=== PATIENT | female | born 1960 | race Caucasian/White ===

== ENCOUNTER 2018-01-01 10:33 | Outpatient (CLI) | payer BC | END 2018-01-01 10:34 | disposition home or self-care (01) | LOC: BICMAMMO 10:33 | PROVIDERS: ATTEND Family Medicine | DX: Z12.31 Encounter for screening mammogram for malignant neoplasm of breast (principal); Z80.3 Family history of malignant neoplasm of breast | CPT/HCPCS: 77063; 77067 ==

== ENCOUNTER 2019-01-29 02:08 | Inpatient (IN) | payer BC ==
[2019-01-29 03:00] LABS: Bilirubin Negative (Negative); Blood, Urine Moderate (Negative); Clarity CLOUDY (Clear); Glucose, Urine (Dipstick) Negative (Negative); Leukocyte Large (Negative); Nitrite Negative (Negative); Protein, Urine (Dipstick) 30 mg/dL (Neg-Trace); Specific Gravity, Urine 1.016 (1.002-1.036); Urobilinogen 0.2 mg/dL (0.2-1.0); pH, Urine 5.5 (5.0-9.0)
[2019-01-29 03:01] LABS: Bacteria/HPF 2+ HPF (None Seen); Hyaline Casts/LPF 4-6 HYALINE CAST LPF (0-3 Hyaline); Pathc Cast-AUWi Flag 1.08 (0-2.49); Squamous Epithelial 0-3 HPF (0-3)
[2019-01-29 03:14] LABS: Crystals/HPF None Seen HPF (Negative)
[2019-01-29 03:39] LABS: ALT (SGPT) 40 U/L (8-55); AST (SGOT) 51 U/L (5-34); Albumin 3.9 g/dL (3.4-4.8); Alkaline Phosphatase 79 U/L (40-150); Anion Gap 16 mmol/L (10-20); BUN (Urea Nitrogen) 12 mg/dL (9.8-20.1); Bilirubin, Total 0.6 mg/dL (0.2-1.2); Calc. Creatinine Clearance 0 mL/min (70-130); Calcium 9.7 mg/dL (7.8-10.44); Carbon Dioxide 23 mmol/L (23-31); Chloride 107 mmol/L (98-107); Estimated GFR-MDRD 72; Glucose 186 mg/dL (80-115); Protein, Total 6.9 g/dL (6.0-8.3); Sodium 142 mmol/L (136-145)
[2019-01-29] MEDS ORDERED: Ondansetron PF 4 MG/2 ML Vial ONE ×2 (03:41→04:31)
[2019-01-29 03:44] LABS: #Monocytes 0.8 thou/uL (0.11-0.59); %Basophils 0.1 % (0.0-1.0); %Eosinophils 0.2 % (0.0-10.0); %Lymphocytes 5.8 % (21.0-51.0); %Monocytes 4.6 % (0.0-10.0); %Neutrophils 89.3 % (42.0-75.0); Hemoglobin 15.2 g/dL (12.0-16.0); Mean Corpuscular HGB CONC 32.6 g/dL (32.0-36.0); Mean Corpuscular Hemoglobin 27.2 pg (27.0-31.0); Mean Corpuscular Volume 83.3 fL (78.0-98.0); Mean Platelet Volume 8.7 fL (7.4-10.4); Platelet Count 193 thou/uL (130-400); Red Blood Cell (RBC) Count 5.58 mill/uL (4.20-5.40); White Blood Cell (WBC) Count 16.8 thou/uL (4.8-10.8)
[2019-01-29 03:52] LABS: Lipase 5946 U/L (8-78)
[2019-01-29] MEDS ORDERED: cefTRIAXone\\ROCEPHIN 2 GM VIAL ONE (04:06)
[2019-01-29] MEDS ORDERED: Morphine 4 MG/ML VIAL ONE (04:31)
[2019-01-29] MEDS ORDERED: Sodium Chloride 0.9% 1,000 ML IV SCH (06:42)
[2019-01-29] MEDS ORDERED: Acetaminophen 325 MG TAB PO PRN ×2 (06:42→07:35)
[2019-01-29] MEDS ORDERED: Bisacodyl 10 MG SUPP PR PRN (07:35)
[2019-01-29] MEDS ORDERED: Calcium Carbonate 500 MG ChewTAB PO PRN (07:35)
[2019-01-29] MEDS ORDERED: Artificial Tears 18 DROP/0.9 ML EA EYE PRN (07:35)
[2019-01-29] MEDS ORDERED: Diabetic Tussin 200 MG/10 ML UDCUP PO PRN (07:35)
[2019-01-29] MEDS ORDERED: Sodium Chloride 0.65% Nasal 44 ML BOT EA NARE PRN (07:35)
[2019-01-29] MEDS ORDERED: Zolpidem Tartrate 5 MG TAB PO PRN (07:35)
[2019-01-29] MEDS ORDERED: Eucerin (Mineral Oil/Petrolatum,White) 30 gm Jar TOP PRN (07:35)
[2019-01-29] MEDS ORDERED: Bisacodyl 5 MG TAB PO PRN (07:35)
[2019-01-29] MEDS ORDERED: Ondansetron PF 4 MG/2 ML Vial IVP PRN ×2 (07:35→10:35)
[2019-01-29] MEDS ORDERED: Loratadine 10 MG TAB PO PRN (07:35)
[2019-01-29] MEDS ORDERED: Loperamide HCl 2 MG CAP PO PRN (07:35)
[2019-01-29] MEDS ORDERED: Cepastat Lozenges 1 LOZ PO PRN (07:35)
[2019-01-29] MEDS ORDERED: Dextrose 50% Abboject 50 ML SYRINGE SLOW IVP PRN (07:35)
[2019-01-29] MEDS ORDERED: Senokot S 8.6-50 MG TAB PO PRN (07:35)
[2019-01-29] MEDS ORDERED: Dextrose 5% in Water 1,000 ML IV PRN (07:35)
[2019-01-29] MEDS ORDERED: HumaLOG 300 UNITS/3 ML VIAL SC PRN ×2 (07:35)
--- NOTE | 2019-01-29 08:04 | ULT ---
RIGHT UPPER QUADRANT ULTRASOUND: Date: 01/29/19 INDICATION: History of pancreatitis and morbid obesity. COMPARISON: CT abdomen and pelvis dated 04/02/14. FINDINGS: There are small, layered stones seen within the gallbladder fundus. The gallbladder wall is mildly th ickened, measuring 3 mm. No pericholecystic fluid is evident. No sonographic Jarquin's sign is reporte d. There is diffuse fatty infiltration of the liver. The main pancreatic duct is slightly dilated, me asuring over 3 mm. The common bile duct is dilated, measuring 8 mm. The visualized right kidney measu res 10.8 cm in length without evidence of hydronephrosis. No definite free fluid is evident. IMPRESSION: 1. Fatty liver. 2. Cholelithiasis without sonographic evidence of acute cholecystitis. 3. Dilatation of the common bile duct measuring 8 mm. There is also dilatation of the main pancreati c duct. Distal obstructing stone or mild obstruction from the patient's reported pancreatitis cannot be entirely excluded. MRCP examination may be helpful for further characterization. POS: VICKY
[2019-01-29] MEDS: Enoxaparin Sodium 40 MG/0.4 ML SYRINGE SC SCH (08:14)
[2019-01-29] MEDS: Famotidine/PF 20 mg/2ml Vial SLOW IVP SCH ×2 (08:14→20:56)
[2019-01-29] MEDS: HYDROcodone/Acetaminophen 5/325 mg Tablet PO PRN ×2 (08:15→19:18)
[2019-01-29] MEDS: Famotidine 20 MG TAB PO SCH ×2 (08:22→20:57)
[2019-01-29 08:33] LABS: Lactic Acid 2.5 mmol/L (0.5-2.2)
[2019-01-29] MEDS ORDERED: Morphine 4 MG/ML VIAL SLOW IVP PRN (08:40)
[2019-01-29] MEDS ORDERED: Ondansetron ODT 4 MG TAB SL PRN (10:35)
[2019-01-29] MEDS: Sodium Chloride 0.9% 1,000 ML IV SCH ×3 (10:58→20:58)
[2019-01-29] MEDS: hydrALAZINE 20 MG/ML VIAL SLOW IVP PRN ×2 (10:59→17:24)
[2019-01-29] MEDS ORDERED: Nystatin Powder 15 GM BOT TOP PRN (12:04)
--- NOTE | 2019-01-29 12:49 | HP ---
PRIMARY CARE PHYSICIAN: Dayne Pederson MD REASON FOR ADMISSION: Acute pancreatitis. HISTORY OF PRESENT ILLNESS: A 59-year-old female who has morbid obesity, who presented to emergency room with complaint of acute onset of nausea and vomiting which started yesterday. She was also having epigastric abdominal pain. She denies any diarrhea, melena, or hematochezia. She denies any hematemesis. She denies any recent antibiotic exposure. She denies any fever or chills. She denies any UTI symptoms. The patient was not able to keep anything down and that is why she was brought to emergency room for evaluation. In the emergency room, the patient was evaluated and routine blood test showed lactic acidosis, leukocytosis, and elevated lipase. The patient also has urinalysis suggestive of UTI. The patient received in the emergency room Rocephin, IV fluid, and subsequently she is admitted to surgical floor. REVIEW OF SYSTEMS: CONSTITUTIONAL: Negative for weight loss or gain, ability to conduct usual activities. SKIN: Negative for rash, itching. EYES: Negative for double vision, pain. ENT/MOUTH: Negative for nose bleeding, neck stiffness, pain, tenderness. CARDIOVASCULAR: Negative for palpitations, dyspnea on exertion, orthopnea. RESPIRATORY: Negative for shortness of breath, wheezing, cough, hemoptysis, fever or night sweats. GASTROINTESTINAL: Negative for poor appetite, abdominal pain, heartburn, nausea, vomiting, constipation, or diarrhea. GENITOURINARY: Negative for urgency, frequency, dysuria, nocturia. MUSCULOSKELETAL: Negative for pain, swelling. NEUROLOGIC/PSYCHIATRIC: Negative for anxiety, depression. ALLERGY/IMMUNOLOGIC: Negative for skin rash, bleeding tendency. Please see my HPI for pertinent positives and negatives. All other review of systems reviewed and negative except as mentioned in HPI. PAST MEDICAL HISTORY: Morbid obesity, degenerative spine disease, osteoarthritis, and asthma, prediabetes. PAST SURGICAL HISTORY: Hemorrhoid surgery, sinus surgery, and . PAST PSYCHIATRIC HISTORY: Anxiety and depression. SOCIAL HISTORY: The patient denies any alcohol abuse. She denies any smoking. She denies any other illicit drug abuse. She lives at home with family. FAMILY HISTORY: No strong family history of premature coronary artery disease, stroke, or cancer. ALLERGIES: PAPER TAPE, BUT NO KNOWN DRUG ALLERGY. CURRENT HOME MEDICATIONS: The patient is taking metformin 1000 mg p.o. twice daily. EMERGENCY ROOM COURSE: The patient has received Rocephin 2 g, morphine 4 mg, Zofran 4 mg x2, IV fluid 2 L, Bentyl 20 mg IM. PHYSICAL EXAMINATION: VITAL SIGNS: On arrival, blood pressure 180/77, pulse 61, respiratory rate 20, temperature 98.3, saturation 97% on room air. Weight 163 kg. GENERAL: The patient is currently alert, awake, no obvious acute distress. HEENT: Head; normocephalic, atraumatic. Eyes; pupils round, reactive to light. Extraocular muscle intact. ENT, oropharynx within normal limits. Moist mucous membranes. No oral lesion. No pharyngeal erythema. No exudate. NECK: Supple. No JVD. No thyromegaly. No carotid bruit. No jugular venous distention. LUNGS: Clear to auscultation without any rhonchi or rales. CARDIAC: S1, S2 regular. No murmur. No gallop. No rub. ABDOMEN: The patient does have epigastric discomfort. No peritoneal sign. No guarding. No rigidity. No rebound. Morbid obesity limiting examination. BACK: Unremarkable. No CVA tenderness. EXTREMITIES: Upper extremity, passive movement of all joints are normal. Lower extremity, no edema. Good distal pulsation. SKIN: The patient does have intertriginous area erythematous. As per emergency room note, the patient was found with bedbugs as well and the patient is also dealing with bedbugs at home. NEUROLOGIC: Unremarkable. She moves all 4 limbs. SIGNIFICANT LABS: Ultrasound showing fatty liver, cholelithiasis, dilatation of common bile duct 8 mm, dilatation of main pancreatic duct. CBC; WBC 16.8, hemoglobin 15.2, platelet 193. BMP; sodium 142, potassium 4.0, chloride 97, carbon dioxide 23, anion gap 16, BUN 12, creatinine 0.81, glucose 186, calcium 9.7. LFTs; AST 51, ALT 40, alkaline phosphatase 79, albumin 3.9, lipase 5946. Lactic acid 3.2. Urinalysis suggestive of UTI. ASSESSMENT AND PLAN: Impression: 1. Acute pancreatitis. This patient has cholelithiasis and she has slightly dilated common bile duct and prominent pancreatic duct. We will consult development coordinator for their evaluation. The patient is too big to have magnetic resonance cholangiopancreatography. We will ask development coordinator if any need of endoscopic retrograde cholangiopancreatography. At this point, we will treat conservatively. We will keep her n.p.o. Continue with IV fluid NS at 125 mL/h, control her pain with morphine p.r.n. basis. Continue Pepcid 20 mg IV b.i.d. We will repeat labs including CBC, CMP, CRP, lipase, magnesium, phosphorus, and lipid profile tomorrow. The patient is also kept on antibiotic therapy for urinary tract infection, which will also help to prevent infection in biliary area. 2. Lactic acidosis, likely due to sepsis secondary to urinary tract infection versus choledocholithiasis. At this point, the patient will be given IV fluid. The patient is already on broad spectrum antibiotic therapy. We will repeat lactic acid level tomorrow. 3. Urinary tract infection with sepsis. The patient's urinalysis was consistent with urinary tract infection. We will follow up on culture result. The patient will be kept on Rocephin and levofloxacin. 4. Morbid obesity with BMI 43. Dietary education given. Weight loss education given. 5. Tinea infection in the skin. The patient will need nystatin topical application as needed. 6. Diabetes type 2. We will check hemoglobin A1c tomorrow and continue with insulin as per sliding scale protocol. 7. Deep venous thrombosis prophylaxis. Lovenox 40 mg subcu daily. Gastrointestinal prophylaxis, Pepcid 20 mg IV b.i.d. CODE STATUS: The patient is full code. The patient's is surrogate decision maker. DISPOSITION PLAN: 1. Based on clinical course. 2. Anxiety and depression. We will continue Zoloft 25 mg p.o. daily. Job ID: [id number]
[2019-01-29 21:11] VITALS: BMI 56.8
--- NOTE | 2019-01-29 22:25 | PRG ---
DATE OF SERVICE: 01/29/2019 I have seen Ms. Mtz, is a 59-year-old morbidly obese woman with acute gallstone pancreatitis. I was asked to evaluate the patient for possible laparoscopic cholecystectomy. At the time of my evaluation, the patient reports the pain is better controlled now. PHYSICAL EXAMINATION: VITAL SIGNS: Includes blood pressure 174/82, pulse is 72, respiratory rate is 18, temperature is 97.9 degrees Fahrenheit, oxygen saturation 93% on room air. HEART: Reveals regular rate and rhythm. LUNGS: Clear to auscultation bilaterally. HEENT: Pupils are equal, round, reactive to light and accommodation. She has no scleral icterus present. NEUROLOGIC EXAMINATION: No focal deficits present. ABDOMEN: Soft, morbidly obese with large panniculus which hangs down to almost her knees. LABORATORY FINDINGS: Significant for CBC with 16,800 white blood cells, hemoglobin and hematocrit 15.2 and 46.5 respectively, platelet count 193,000. Metabolic profile is significant for lipase markedly elevated at 5946. AST and ALT are normal at 51 and 40 respectively. Total bilirubin is also normal at 0.6. Alkaline phosphatase is normal at 79. I have evaluated the abdominal ultrasound, which was obtained this morning, remarkable for intraluminal small gallstones. Common bile duct is slightly dilated for this patient's age at 8 mm in diameter. The patient was unable to undergo MRCP today due to weight limitation. I have reviewed the consultation as dictated by Zonia Nevarez, trauma nurse practitioner, and I agree with her stated plan. There is no indication for laparoscopic cholecystectomy for this patient at this time with active pancreatitis, especially since there is no radiographic evidence of acute cholecystitis. Recommend conservative management including bowel rest, IV hydration, and serial laboratory studies. Above findings and plan discussed with the patient who indicates understanding information given. I have answered her questions. Job ID: [id number]
--- NOTE | 2019-01-29 22:45 | CON ---
DATE OF CONSULTATION: 01/29/2019 REASON FOR CONSULTATION: Pancreatitis. HISTORY OF PRESENT ILLNESS: Maria Del Rosario Mtz is a very pleasant 59-year-old woman with a history of morbid obesity, prediabetes, arthritis, and asthma. She has also been dealing with bedbugs recently. 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 I do not have any further details on this and she really cannot provide me any. She denies any prior history of gallbladder issues for pancreatitis or any family history of pancreatitis. Yesterday out of the blue, she had a sudden onset of acute epigastric pain, nausea and repeated vomiting. There was no associated diarrhea, melena, or hematochezia or fever with this. Upon presentation to the emergency department early this morning, laboratory studies demonstrated leukocytosis, elevated lactic acid and elevated lipase over 5000. LFTs were essentially normal. She had an abdominal ultrasound, which showed cholelithiasis and some mild dilation of the common bile duct to 8 mm and suggestion of dilation of the pancreatic duct as well. Urinalysis suggested UTI. She has been admitted to the hospital, started on Rocephin, IV fluids, analgesics and antiemetics. Currently, she says she is feeling better. She is feeling thirsty, but not really hungry. Abdominal pain is improved, but still persists. She is hemodynamically stable and afebrile. She reports that she does not drink any alcohol. She has had no prior episodes of pancreatitis. REVIEW OF SYSTEMS: Full review of systems including constitutional, head, eyes, ears, nose, throat, GI, , cardiovascular, respiratory, musculoskeletal, and neurologic systems is negative except as noted in the HPI. PAST MEDICAL HISTORY: Obesity, degenerative joint disease, asthma, prediabetes, depression/anxiety, bedbugs infestation, diverticulitis 2014. ALLERGIES: PAPER TAPE. OUTPATIENT MEDICATIONS: 1. Metformin. 2. Zoloft. 3. Aspirin 81 mg daily. 4. Tramadol p.r.n. SOCIAL HISTORY: She denies any smoking, alcohol, or drug use. FAMILY HISTORY: Negative for pancreatic disease. PHYSICAL EXAMINATION: VITAL SIGNS: Temperature 98.6, pulse 80, blood pressure 188/96, 95% oxygen saturation on room air. GENERAL: Morbidly obese 59-year-old woman, sitting up on the side of the bed comfortably, in no distress. SKIN: No jaundice, no rashes were palpable. EYES: No scleral icterus. Extraocular movements intact. ENT: Mucous membranes moist. No oral lesions. LYMPH: No submandibular, supraclavicular lymphadenopathy. Thyroid nontender to palpation. HEART: Regular rate and rhythm. LUNGS: Distant breath sounds. Clear to auscultation. ABDOMEN : The abdomen is morbidly obese. Bowel sounds are hypoactive, but present. The abdomen is soft, really nontender to palpation throughout at this time. No guarding, rebound tenderness. EXTREMITIES: No peripheral edema. VESSELS: Radial pulses 2+ bilaterally. NEUROLOGIC: Cranial nerves 2 through 12 intact bilaterally. No focal deficits. LABORATORY STUDIES: WBC 16.8, hemoglobin 15.2, platelets 193. Sodium 142, potassium 4.0, BUN 12, creatinine 0.81, glucose 171. Lactic acid was initially 3.2, came down to 2.5. AST is mildly elevated to 51. LFTs are otherwise completely normal with total bilirubin of 0.6, alkaline phosphatase 79, ALT 40, albumin is 3.9. Lipase is elevated to 5946. IMAGING STUDIES: Abdominal ultrasound from earlier today demonstrates cholelithiasis with only mild gallbladder wall thickening to 3 mm, but no pericholecystic fluid. There is fatty infiltration of the liver. The main pancreatic duct was read as slightly dilated measuring over 3 mm. The common bile duct measured 8 mm. ASSESSMENT/PLAN: 1. Acute pancreatitis, initial episode, likely biliary etiology. 2. Mild biliary dilation on abdominal ultrasound, with essentially normal liver function tests. 3. Cholelithiasis. The patient's presentation is all consistent with first episode of uncomplicated pancreatitis. Laboratory parameters are all favorable. I anticipate she will do well with aggressive supportive care. She is already getting with IV fluids, n.p.o. status, antiemetics and analgesics. Regarding the etiology of her pancreatitis, I would favor biliary etiology. She has cholelithiasis evident on the ultrasound, and she does not drink alcohol. I do note the common bile duct dilation to 8 mm on the ultrasound, but on the other hand, liver function tests are essentially normal, and I have a low suspicion for choledocholithiasis at this time. Normally, I would recommend magnetic resonance cholangiopancreatography to better evaluate for choledocholithiasis, but she cannot have magnetic resonance cholangiopancreatography due to her body habitus. Accordingly, I would recommend continuing supportive care for pancreatitis, and also recommend getting surgical consultation for consideration of cholecystectomy at some point. During cholecystectomy, intraoperative cholangiogram could be performed to better evaluate the bile duct, and if there is evidence of choledocholithiasis on this, then endoscopic retrograde cholangiopancreatography would be indicated. I would not plan for any endoscopic retrograde cholangiopancreatography diagnostically. I would recommend trending the liver function tests, and if they were to rapidly increase over the course of this hospitalization then I would certainly consider a preoperative endoscopic retrograde cholangiopancreatography. Thank you for the consultation. Please call anytime with questions or concerns. Job ID: [id number]
--- NOTE | 2019-01-30 01:40 | CON ---
DATE OF CONSULTATION: 01/29/2019 HISTORY OF PRESENT ILLNESS: This is a 59-year-old female, who presented to the emergency room with complaints of nausea and vomiting that started Venkat night. The patient also reported epigastric abdominal pain. The patient denied any diarrhea or constipation. The patient's last normal bowel movement was Thursday evening. The patient denies any recent fever or chills and denies any antibiotic exposure. The patient also denies any urinary symptoms. The patient reports several episodes of vomiting and not able to keep anything down. REVIEW OF SYSTEMS: A 10-point review of systems is negative unless otherwise stated in the above HPI. PAST MEDICAL HISTORY: Morbid obesity, degenerative spine disease, osteoarthritis, asthma controlled, prediabetes, diverticulitis. PAST SURGICAL HISTORY: In 2013, the patient had large bowel resection due to diverticulitis, , hemorrhoid surgery, sinus surgery. PAST PSYCHIATRIC HISTORY: Anxiety and depression. SOCIAL HISTORY: The patient denies any alcohol abuse. The patient states she drank in her 20s, but has not drank any alcohol in the last 30 years. The patient denies any smoking history, and denies any illicit drug use. The patient lives at home with family. ALLERGIES: NO KNOWN DRUG ALLERGIES. CURRENT HOME MEDICATIONS: Metformin, Zoloft. PHYSICAL EXAMINATION: VITAL SIGNS: Temp 98.4, pulse 69, respirations 18, SpO2 of 92% on room air, blood pressure 181/73. GENERAL: The patient awake and alert, in no distress, the patient morbidly obese. HEENT: Head is normocephalic and atraumatic. Mucous membranes are moist, no JVD. RESPIRATORY: Clear to auscultation. No rales, rhonchi, or wheezing. CARDIAC: Regular rate. Positive systolic murmur, grade 2/6. No pedal edema. ABDOMEN: Morbidly obese limiting examination, no obvious rigidity, active bowel sounds, tenderness in the upper quadrants. No obvious peritoneal signs. EXTREMITIES: Moves all extremities. No edema. Good distal pulses. NEUROLOGIC: No focal deficit. LABORATORY DATA: WBC 16.8, RBC 5.58, hemoglobin 15.2, hematocrit 46.5. Sodium 142, potassium 4.0, chloride 107, carbon dioxide 23, anion gap 16, BUN 12, creatinine 0.81, estimated GFR 72, glucose 186, calcium 9.7, total bilirubin 0.6, AST 51, ALT 40, alkaline phos 79. Serum total protein 6.9, albumin 3.9, globulin 3.0, albumin-globulin ratio 1.3, triglycerides 135. Lipase 5946. Urinalysis positive for protein, moderate blood, large leukocyte esterase, positive 2+ bacteria. DIAGNOSTICS: Abdominal ultrasound reveals fatty liver, cholelithiasis without sonographic evidence of acute cholecystitis, dilation of the common bile duct measuring 8 mm. There is also dilation of the main pancreatic duct. Distal obstructing stone or mild obstruction from the patient's reported pancreatitis cannot be entirely excluded. IMPRESSION: 1. Acute cholelithiasis with acute pancreatitis. 2. Urinary tract infection. 3. Morbid obesity. 4. History of type 2 diabetes. 5. Arthritis. PLAN: Surgical recommendation, conservative therapy at this time. We will repeat labs and plan for laparoscopic cholecystectomy when the pancreatitis is resolved. The plan has been discussed with Dr. Llanos. Job ID: [id number]
[2019-01-30] MEDS: Sodium Chloride 0.9% 1,000 ML IV SCH ×3 (05:25→20:46)
[2019-01-30] MEDS: cefTRIAXone\\ROCEPHIN 2 GM in Sodium Chloride 0.9% 100 ML IVPB SCH (05:25)
[2019-01-30] MEDS: HYDROcodone/Acetaminophen 5/325 mg Tablet PO PRN ×2 (05:30→09:32)
[2019-01-30 07:04] LABS: Hemoglobin A1c 5.3 % (4.0-6.0)
[2019-01-30 07:13] LABS: Lactic Acid 0.8 mmol/L (0.5-2.2)
[2019-01-30 07:19] LABS: ALT (SGPT) 23 U/L (8-55); AST (SGOT) 17 U/L (5-34); Albumin 3.2 g/dL (3.4-4.8); Alkaline Phosphatase 66 U/L (40-150); Anion Gap 13 mmol/L (10-20); BUN (Urea Nitrogen) 10 mg/dL (9.8-20.1); Bilirubin, Total 0.6 mg/dL (0.2-1.2); CRP (Inflammatory) 5.45 mg/dL (= or < 0.5); Calc. Creatinine Clearance 213 mL/min (70-130); Calcium 8.5 mg/dL (7.8-10.44); Carbon Dioxide 20 mmol/L (23-31); Cardiac Risk 4.2 (Less than 4.5); Chloride 109 mmol/L (98-107); Cholesterol 118 mg/dl (< 200 Desired); Estimated GFR-MDRD 88; Globulin 2.7 g/dL (2.4-3.5); Glucose 120 mg/dL (80-115); HDL Cholesterol 28 mg/dL (>60 Neg Risk); LDL Cholesterol, Calculated 66 mg/dL; Lipase 610 U/L (8-78); Magnesium 1.9 mg/dL (1.6-2.6); Potassium 3.5 mmol/L (3.5-5.1); Protein, Total 5.9 g/dL (6.0-8.3); Sodium 138 mmol/L (136-145); Triglycerides 118 mg/dL (Less than 150)
[2019-01-30 07:22] LABS: Phosphorus 1.9 mg/dL (2.3-4.7)
[2019-01-30 07:29] LABS: #Eosinphils 0.1 thou/uL (0.0-0.7); #Monocytes 0.7 thou/uL (0.11-0.59); #Neutrophils 12.2 thou/uL (1.40-6.50); %Basophils 0.1 % (0.0-1.0); %Eosinophils 0.6 % (0.0-10.0); %Lymphocytes 7.4 % (21.0-51.0); %Neutrophils 86.9 % (42.0-75.0); Mean Corpuscular HGB CONC 31.7 g/dL (32.0-36.0); Mean Corpuscular Hemoglobin 26.2 pg (27.0-31.0); Mean Corpuscular Volume 82.7 fL (78.0-98.0); Mean Platelet Volume 8.7 fL (7.4-10.4); Platelet Count 186 thou/uL (130-400); Red Blood Cell (RBC) Count 4.95 mill/uL (4.20-5.40)
[2019-01-30] MEDS: Famotidine/PF 20 mg/2ml Vial SLOW IVP SCH ×2 (09:35→20:44)
[2019-01-30] MEDS: Enoxaparin Sodium 40 MG/0.4 ML SYRINGE SC SCH (09:36)
[2019-01-30] MEDS: Famotidine 20 MG TAB PO SCH ×2 (09:36→20:43)
[2019-01-30] MEDS: hydrALAZINE 20 MG/ML VIAL SLOW IVP PRN (11:00)
--- NOTE | 2019-01-30 11:27 | PRG ---
DATE OF SERVICE: 01/30/2019 SUBJECTIVE: Ms. Mtz says she feels about the same as yesterday. Some abdominal discomfort and nausea persists. She has not had any vomiting. She has had some Jell-O and just went okay. She is receiving [place] for pain. She has remained clinically and hemodynamically stable. Surgical team evaluated her and recommended no acute surgical intervention, but pancreatitis resolved before considering cholecystectomy. OBJECTIVE: VITAL SIGNS: Temperature 98.0, pulse 67, blood pressure 170/70, and 95% oxygen saturation on room air. GENERAL: No acute distress. HEART: Regular rate and rhythm. LUNGS: Clear to auscultation bilaterally. ABDOMEN: Bowel sounds hypoactive, but present. Soft. Some tenderness to palpation in the epigastrium. No guarding or rebound tenderness. EXTREMITIES: No peripheral edema. LABORATORY STUDIES: WBC 14.0, hemoglobin 13, and platelets 186. Sodium 138, potassium 3.5, BUN 10, creatinine 0.68, glucose 127, total bilirubin 0.6, alkaline phosphatase 66, AST 17, ALT 23, lipase down to 610. ASSESSMENT AND PLAN: 1. Acute pancreatitis, initial episode, likely biliary etiology, clinically stable. 2. Mild biliary dilation on abdominal ultrasound, with normal LFTs. 3. Cholelithiasis. Appreciate surgical recommendations. The patient does not need any acute surgical intervention, but will need cholecystectomy at some point after resolution of this pancreatitis episode. She is clinically stable. I advised her not to push it if she feels that clear liquids aggravate her pain. Hopefully, she will continue to have clinical improvement over the next day or two, and be able to advance her diet as tolerated. No other recommendations from a Gastroenterology perspective at this time. Please call anytime with questions or concerns. Job ID: [id number]
--- NOTE | 2019-01-30 11:53 | PDOC.PN ---
- Subjective Encounter Start Date: 01/30/19 Encounter Start Time: 11:51 Subjective: anorectic, abd discomfort persiste - Objective Resuscitation Status - Order Detail: 01/29/19 07:32 Resuscitation Status Routine Resuscitation Status: FULL: Full Resuscitation MAR Reviewed: Yes Vital Signs & Weight: Vital Signs (12 hours) Temp Pulse Resp BP BP Pulse Ox 01/30/19 11:00 67 201/78 H 01/30/19 08:15 98.0 F 67 20 170/70 H 95 01/30/19 08:00 95 01/30/19 04:00 98.7 F 69 20 162/77 H 97 01/30/19 00:00 98.1 F 65 16 156/88 H 95 01/29/19 23:57 98.3 F 72 18 166/70 H 96 Weight Weight 341 lb 9.6 oz I&O: 01/29/19 01/30/19 01/31/19 06:59 06:59 06:59 Intake Total 3100 Balance 3100 Result Diagrams: 01/30/19 07:13 01/30/19 06:15 Additional Labs: Accuchecks 01/30/19 01/30/19 01/29/19 10:33 05:20 20:57 POC Glucose 127 H 123 H 126 H 01/29/19 15:31 POC Glucose 128 H Phys Exam - Physical Examination Neck: no JVD Respiratory: clear to auscultation bilateral Cardiovascular: RRR, no significant murmur Gastrointestinal: soft, positive bowel sounds generalized tenderness Musculoskeletal: edema present Dx/Plan (1) Pancreatitis, acute Code(s): K85.90 - ACUTE PANCREATITIS WITHOUT NECROSIS OR INFECTION, UNSP Status: Acute (2) Cholelithiasis Code(s): K80.20 - CALCULUS OF GALLBLADDER W/O CHOLECYSTITIS W/O OBSTRUCTION Status: Acute (3) DM type 2 (diabetes mellitus, type 2) Status: Chronic Qualifiers: Diabetes mellitus fdc insulin use: without fdc use Diabetes mellitus complication status: without complication Qualified Code(s): E11.9 - Type 2 diabetes mellitus without complications (4) Lactic acidosis Code(s): E87.2 - ACIDOSIS Status: Acute (5) HTN (hypertension) Code(s): I10 - ESSENTIAL (PRIMARY) HYPERTENSION Status: Chronic Qualifiers: Hypertension type: essential hypertension Qualified Code(s): I10 - Essential (primary) hypertension - Plan cont NPO, iv fluids, Morphine for pain -: parenteral antihypertensives -: accu/ss * .
[2019-01-30] MEDS: Morphine 4 MG/ML VIAL SLOW IVP PRN (17:59)
[2019-01-30] MEDS: traMADol HCl 50 MG TAB PO PRN (21:02)
[2019-01-30] MEDS: Ondansetron ODT 4 MG TAB PO PRN (21:03)
[2019-01-31] MEDS: Morphine 4 MG/ML VIAL SLOW IVP PRN ×2 (01:13→09:29)
[2019-01-31] MEDS: traMADol HCl 50 MG TAB PO PRN ×2 (03:15→18:12)
[2019-01-31] MEDS: Ondansetron ODT 4 MG TAB PO PRN (03:15)
[2019-01-31] MEDS: cefTRIAXone\\ROCEPHIN 2 GM in Sodium Chloride 0.9% 100 ML IVPB SCH (06:51)
[2019-01-31] MEDS: Enoxaparin Sodium 40 MG/0.4 ML SYRINGE SC SCH (08:12)
[2019-01-31] MEDS: Famotidine 20 MG TAB PO SCH ×2 (08:13→20:59)
--- NOTE | 2019-01-31 08:29 | PRG ---
DATE OF SERVICE: 01/30/2019 SUBJECTIVE: This is a 59-year-old morbidly obese woman with acute gallstone pancreatitis. The patient had no overnight events, but continues to have epigastric pain off and on. OBJECTIVE: VITAL SIGNS: Temperature 98.0, pulse 67, SpO2 of 95% on room air, respirations 20, blood pressure 170/70. GENERAL: The patient is awake, alert, in no distress. HEART: Regular rate and rhythm, grade 2/6 systolic murmur. No pedal edema. RESPIRATORY: Respirations even, nonlabored. No respiratory distress. ABDOMEN: Morbidly obese with a large panniculus which hangs down almost to her knees, soft. LABORATORY DATA: WBC 14.0, RBC 4.95, hemoglobin 13.0, hematocrit 40.9. Sodium 138, potassium 3.5, chloride 109, CO2 of 20, anion gap 13, creatinine 0.68, estimated GFR 88, glucose 120. Hemoglobin A1c 5.3. Lactic acid 0.8. Calcium 8.5, phosphorus 1.9, magnesium 1.9. Total bilirubin 0.6, AST 17, ALT 23, alkaline phos 66. C-reactive protein 5.45. Serum total protein 5.9, albumin 3.2, globulin 2.7. Triglycerides 118, LDL 66, HDL 28. Heart disease risk 4.2. Lipase 610. IMPRESSION: 1. Acute cholelithiasis with acute pancreatitis. 2. Urinary tract infection. 3. Morbid obesity. PLAN: Continue conservative therapy at this time. We will place the patient on a clear liquid diet as tolerated. We will place the patient n.p.o. after midnight for plans for possible laparoscopic cholecystectomy as the pancreatitis is starting to resolve. The patient was examined with Dr. Llanos during morning rounds. Job ID: [id number]
[2019-01-31 08:50] LABS: Band 4 % (5-11); Hemoglobin 13.8 g/dL (12.0-16.0); Lymphocytes 10 % (21-51); MDiff Complete? YES; Mean Corpuscular HGB CONC 32.9 g/dL (32.0-36.0); Mean Corpuscular Hemoglobin 27.2 pg (27.0-31.0); Mean Corpuscular Volume 82.8 fL (78.0-98.0); Mean Platelet Volume 8.6 fL (7.4-10.4); Monocytes 2 % (0-10); Neutrophil 84 % (42-75); Platelet Count 160 thou/uL (130-400); RBC Distribution Width 15.9 % (11.5-14.5); RBC Morphology Normal; Red Blood Cell (RBC) Count 5.06 mill/uL (4.20-5.40); White Blood Cell (WBC) Count 20.8 thou/uL (4.8-10.8)
[2019-01-31 08:56] LABS: ALT (SGPT) 16 U/L (8-55); AST (SGOT) 13 U/L (5-34); Albumin 3.6 g/dL (3.4-4.8); Alkaline Phosphatase 66 U/L (40-150); Anion Gap 15 mmol/L (10-20); BUN (Urea Nitrogen) 8 mg/dL (9.8-20.1); Bilirubin, Total 0.7 mg/dL (0.2-1.2); Calc. Creatinine Clearance 206 mL/min (70-130); Calcium 8.9 mg/dL (7.8-10.44); Carbon Dioxide 21 mmol/L (23-31); Chloride 105 mmol/L (98-107); Estimated GFR-MDRD 85; Globulin 2.9 g/dL (2.4-3.5); Glucose 126 mg/dL (80-115); Magnesium 1.8 mg/dL (1.6-2.6); Potassium 3.4 mmol/L (3.5-5.1); Protein, Total 6.5 g/dL (6.0-8.3); Sodium 138 mmol/L (136-145)
[2019-01-31 09:00] LABS: Phosphorus 1.9 mg/dL (2.3-4.7)
[2019-01-31] MEDS ORDERED: Ondansetron PF 4 MG/2 ML Vial ONE (09:14)
[2019-01-31] MEDS ORDERED: Rocuronium Bromide 10 MG/ML (10ML VIAL) ONE (09:14)
[2019-01-31] MEDS ORDERED: Dexamethasone 20 MG/5 ML VIAL ONE (09:14)
[2019-01-31] MEDS ORDERED: Succinylcholine Chloride 20 MG/ML 10 ml SYRINGE FS ONE (09:14)
[2019-01-31] MEDS ORDERED: Metoclopramide HCl 10 MG/2 ML VIAL ONE (09:14)
[2019-01-31] MEDS ORDERED: PROPOFOL 200 MG/20 ML VIAL ONE (09:14)
[2019-01-31] MEDS ORDERED: Lidocaine 1% PF 5 ML VIAL ONE (09:14)
[2019-01-31] MEDS: Sodium Chloride 0.9% 1,000 ML IV SCH ×2 (09:37→14:46)
--- NOTE | 2019-01-31 10:04 | PRG ---
DATE OF SERVICE: 01/31/2019 SUBJECTIVE: Ms. Mtz says she feels about the same as before. Epigastric pain continues on and off. There is still some nausea, and she actually says she threw up this morning. She is n.p.o. status. Hemodynamically stable. OBJECTIVE: VITAL SIGNS: Temperature 98.3, pulse 70, blood pressure 147/62, 96% oxygen saturation on room air. GENERAL: No acute distress, sitting up in chair comfortably. HEART: Regular rate and rhythm. LUNGS: Clear to auscultation bilaterally. ABDOMEN: Bowel sounds are present. Tender to palpation in the epigastrium. No guarding or rebound tenderness. EXTREMITIES: Morbidly obese. No peripheral edema. LABORATORY STUDIES: WBC up to 20.8, hemoglobin 13.8, platelets 160. Sodium 138, potassium 3.4, BUN 8, creatinine 0.70. LFTs all remain normal with alkaline phosphatase 66, AST 13, ALT 16, total bilirubin 0.7. ASSESSMENT AND PLAN: 1. Acute pancreatitis. 2. Cholelithiasis. The patient is clinically stable, though still complaining of abdominal pain and nausea. I would continue n.p.o. status for now. Surgery is also following and plans are for likely laparoscopic cholecystectomy later this admission. Continue otherwise with supportive care, IV fluids, pain control as needed. Job ID: [id number]
[2019-01-31] MEDS ORDERED: Ketorolac Tromethamine 30 MG/ML VIAL IVP SCH (11:00)
[2019-01-31] MEDS ORDERED: Acetaminophen 1,000 MG in Premix Bag 1 BAG IVPB SCH (11:00)
[2019-01-31] MEDS ORDERED: Bupivacaine HCl 0.5%/Epinephrine 1:200,000/PF 30 ml Vial ONE (12:24)
[2019-01-31] MEDS ORDERED: Iothalamate Meglumine 60% 50 ML VIAL FS ONE (12:24)
[2019-01-31] MEDS ORDERED: Fentanyl 100 MCG/2 ML VIAL ONE ×3 (12:25→15:23)
[2019-01-31] MEDS ORDERED: Famotidine/PF 20 mg/2ml Vial ONE (12:25)
[2019-01-31] MEDS ORDERED: SUGAMMADEX SODIUM 500 MG/5 ML VIAL ONE (12:38)
[2019-01-31] MEDS ORDERED: Ketorolac Tromethamine 30 MG/ML VIAL ONE (12:43)
--- NOTE | 2019-01-31 13:25 | PDOC.PN ---
- Subjective Encounter Start Date: 01/31/19 Encounter Start Time: 09:45 Subjective: no abd pain or nausea -: has lower back pain -: is npo for lap shakira today - Objective Resuscitation Status - Order Detail: 01/29/19 07:32 Resuscitation Status Routine Resuscitation Status: FULL: Full Resuscitation MAR Reviewed: Yes Vital Signs & Weight: Vital Signs (12 hours) Temp Pulse Resp BP Pulse Ox 01/31/19 11:25 98.3 F 72 20 155/78 H 95 01/31/19 07:37 98.3 F 70 20 147/62 H 96 01/31/19 04:00 98.8 F 77 16 150/66 H 94 L Weight Weight 341 lb 9.6 oz I&O: 01/30/19 01/31/19 02/01/19 06:59 06:59 06:59 Intake Total 3100 1900 1200 Balance 3100 1900 1200 Result Diagrams: 01/31/19 08:29 01/31/19 08:29 Additional Labs: Accuchecks 01/31/19 01/31/19 01/30/19 11:23 06:01 20:47 POC Glucose 126 H 136 H 109 01/30/19 15:21 POC Glucose 130 H Phys Exam - Physical Examination HEENT: PERRLA dry mucosa Neck: no JVD, supple Respiratory: no wheezing, no rales Cardiovascular: RRR, no significant murmur Gastrointestinal: soft, no distention, positive bowel sounds Musculoskeletal: no edema, pulses present Neurological: non-focal, moves all 4 limbs Psychiatric: normal affect, A&O x 3 Dx/Plan (1) Cholelithiasis Code(s): K80.20 - CALCULUS OF GALLBLADDER W/O CHOLECYSTITIS W/O OBSTRUCTION Status: Acute Qualifiers: Cholelithiasis location: gallbladder Cholecystitis presence: without cholecystitis (2) Pancreatitis, acute Code(s): K85.90 - ACUTE PANCREATITIS WITHOUT NECROSIS OR INFECTION, UNSP Status: Acute Qualifiers: Pancreatitis type: biliary Acute pancreatitis complication: unspecified Qualified Code(s): K85.10 - Biliary acute pancreatitis without necrosis or infection (3) DM type 2 (diabetes mellitus, type 2) Status: Chronic Qualifiers: Diabetes mellitus exterminator termite insulin use: without exterminator termite use Diabetes mellitus complication status: without complication Qualified Code(s): E11.9 - Type 2 diabetes mellitus without complications (4) HTN (hypertension) Code(s): I10 - ESSENTIAL (PRIMARY) HYPERTENSION Status: Chronic Qualifiers: Hypertension type: essential hypertension Qualified Code(s): I10 - Essential (primary) hypertension (5) Morbid obesity with BMI of 50.0-59.9, adult Code(s): E66.01 - MORBID (SEVERE) OBESITY DUE TO EXCESS CALORIES; Z68.43 - BODY MASS INDEX (BMI) 50-59.9, ADULT Status: Chronic (6) UTI (urinary tract infection) Status: Acute Qualifiers: Urinary tract infection type: acute cystitis Hematuria presence: without hematuria Qualified Code(s): N30.00 - Acute cystitis without hematuria - Plan is going for lap shakira today -: replace electrolytes including phosphorus -: no prior h/o sleep apnea, pt has life threatening obesity -: wbc is 20k this am, lft's are normal -: gentle iv hydration, cipro for uti * . Review of Systems - Medications/Allergies Allergies/Adverse Reactions: Allergies Allergy/AdvReac Type Severity Reaction Status Date / Time HYPOALLERGENIC Allergy Uncoded 01/29/19 06:40 PAPER TAPE Allergy Uncoded 01/29/19 06:40 Medications: Current Medications Acetaminophen (Tylenol) 650 mg PO Q4H PRN PRN Reason: Headache/Fever/Mild Pain (1-3) Last Admin: 01/30/19 17:51 Dose: 650 mg Hydrocodone Bitart/Acetaminophen ([place] 5/325) 1 tab PO Q4H PRN PRN Reason: Moderate Pain (4-6) Last Admin: 01/30/19 09:32 Dose: 1 tab Artificial Tears (Tears Naturale) 2 drop EA EYE PRN PRN PRN Reason: Dry Eyes Bisacodyl (Dulcolax) 10 mg WV DAILYPRN PRN PRN Reason: Constipation Bisacodyl (Dulcolax) 10 mg PO DAILYPRN PRN PRN Reason: Constipation Calcium Carbonate (Tums) 1,000 mg PO Q4H PRN PRN Reason: Heartburn or Indigestion Ciprofloxacin (Cipro) 500 mg PO 0600,2000 TATIANNA Dextrose/Water (Dextrose 50%) 25 gm SLOW IVP PRN PRN PRN Reason: Hypoglycemia Enoxaparin Sodium (Lovenox) 40 mg SC 0900 TATIANNA Last Admin: 01/31/19 08:12 Dose: 40 mg Famotidine (Pepcid) 20 mg PO BID [facility] Last Admin: 01/31/19 08:13 Dose: 20 mg Glucagon (Glucagon) 1 mg IM PRN PRN PRN Reason: Hypoglycemia Guaifenesin (Robitussin Sf) 200 mg PO Q4H PRN PRN Reason: Cough Hydralazine HCl (Apresoline) 10 mg SLOW IVP Q4H PRN PRN Reason: SBP > 180 and HR < 70 Last Admin: 01/30/19 11:00 Dose: 10 mg Dextrose/Water (D5w) 1,000 mls @ 0 mls/hr IV .Q0M PRN PRN Reason: Hypoglycemia Sodium Chloride (Normal Saline 0.9%) 1,000 mls @ 125 mls/hr IV .Q8H [facility] Last Admin: 01/31/19 09:37 Dose: 1,000 mls Levofloxacin 750 mg/ Device 150 mls @ 100 mls/hr IVPB NOW [facility] Stop: 01/31/19 15:00 Acetaminophen 1,000 mg/ Device 100 mls @ 400 mls/hr IVPB ONE [facility] Stop: 01/31/19 15:00 Last Admin: 01/31/19 11:01 Dose: 100 mls Insulin Human Lispro (Humalog) 0 units SC .MILD SLIDING SCALE PRN PRN Reason: Mild Correctional Scale Last Admin: 01/29/19 11:00 Dose: 2 unit Insulin Human Lispro (Humalog) 0 units SC .BEDTIME SLIDING SC PRN PRN Reason: Bedtime Correctional Scale Ketorolac Tromethamine (Toradol) 30 mg IVP NOW [facility] Stop: 01/31/19 15:00 Last Admin: 01/31/19 11:01 Dose: 30 mg Loperamide HCl (Imodium) 2 mg PO PRN PRN PRN Reason: Diarrhea/Loose Stools Loratadine (Claritin) 10 mg PO DAILYPRN PRN PRN Reason: Sinus Symptoms Mineral Oil/White Petrolatum (Eucerin Cream) 0 gm TOP BIDPRN PRN PRN Reason: Dry Skin Morphine Sulfate (Morphine) 4 mg SLOW IVP Q4H PRN PRN Reason: Severe Pain (7-10) Last Admin: 01/31/19 09:29 Dose: 4 mg Nystatin (Mycostatin Powder) 0 gm TOP BID PRN PRN Reason: Topical Irritations Ondansetron HCl (Zofran Odt) 4 mg PO Q6H PRN PRN Reason: Nausea/Vomiting Last Admin: 01/31/19 03:15 Dose: 4 mg Ondansetron HCl (Zofran) 4 mg IVP Q6H PRN PRN Reason: Nausea/Vomiting Last Admin: 01/30/19 09:52 Dose: 4 mg Senna/Docusate Sodium (Senokot S) 2 tab PO BID PRN PRN Reason: Constipation Sertraline HCl (Zoloft) 25 mg PO DAILY TATIANNA Last Admin: 01/31/19 08:13 Dose: 25 mg Sodium Chloride ([place] Nasal [place] 0.65%) 0 ml EA NARE QIDPRN PRN PRN Reason: Nasal Congestion Sodium Chloride (Flush - Normal Saline) 10 ml IVF Q12HR TATIANNA Sodium Chloride (Flush - Normal Saline) 10 ml IVF PRN PRN PRN Reason: Saline Flush Throat Lozenges (Cepastat Lozenges) 1 marcos PO Q2H PRN PRN Reason: Sore Throat Tramadol HCl (Ultram) 50 mg PO Q6H PRN PRN Reason: Moderate Pain (4-6) Last Admin: 01/31/19 03:15 Dose: 50 mg Zolpidem Tartrate (Ambien) 5 mg PO HSPRN PRN PRN Reason: Insomnia Last Admin: 01/30/19 22:33 Dose: 5 mg
--- NOTE | 2019-01-31 14:10 | HP ---
HISTORY OF PRESENT ILLNESS: Ms. Mtz was admitted by Hospitalist Service on 01/29/2019. Dr. Llanos and Dr. Cohen were consulted. The patient has cholecystitis and cholelithiasis. She has a bile duct of 8 mm by ultrasound. There is no intrahepatic ductal dilatation. Her bilirubin has been normal. Lipase has been high, but normalized with hydration and bowel rest. The patient is morbidly obese, 56 BMI, 5 feet 5 inches, 341 pounds, treated for diabetes mellitus and depression at home. She is ambulatory. I am seeing her today on trauma rounds, and Dr. Llanos asked me to see her regarding her surgical problem. ALLERGIES: NONE. SOCIAL HISTORY: Tobacco, none. Alcohol, none. MEDICATIONS: At home: 1. Metformin 1000 mg with meals . 2. Sertraline 25 mg daily. PAST SURGICAL HISTORY: She has had a left colectomy at [facility]. PAST MEDICAL HISTORY: History of degenerative joint disease, asthma, diabetes, obesity, morbidly obese. REVIEW OF SYSTEMS: No history of cardiac dysfunction. PHYSICAL EXAMINATION: VITAL SIGNS: 5 feet 5 inches, 341 pounds, 56 BMI. LUNGS: Clear to auscultation. CARDIAC: Regular rate and rhythm without murmur or gallop. ABDOMEN: Soft and obese. Mild tenderness in the right upper quadrant. No guarding appreciated. EXTREMITIES: Unremarkable. ASSESSMENT AND PLAN: 1. Super obese, 56 BMI. 2. History of diverticulitis, left colon resection. 3. Biliary pancreatitis, bile duct 8 mm, 59 years of age. No intrahepatic ductal dilatation. Bilirubin, liver function tests are normal. We would recommend laparoscopic video cholecystectomy. Risks of infection, bleeding, reoperation, open procedure, and biliary injury were discussed. Questions were answered. Job ID: [id number]
[2019-01-31] MEDS ORDERED: Promethazine HCl 25 MG/ML VIAL SLOW IVP PRN (14:36)
[2019-01-31] MEDS ORDERED: Ondansetron HCl/PF 4 MG/2 ML Vial IVP PRN (14:36)
[2019-01-31] MEDS ORDERED: Promethazine HCl 25 MG/ML VIAL IM PRN (14:36)
[2019-01-31] MEDS ORDERED: Meperidine HCl/PF 25 MG/ML VIAL SLOW IVP PRN (14:36)
--- NOTE | 2019-01-31 14:39 | RAD ---
EXAM: XR Cholangiogram in Surgery PROVIDED CLINICAL HISTORY: Cholelithiasis and biliary ductal dilatation COMPARISON: None FINDINGS: Single intraoperative fluoroscopic image of the right upper quadrant is submitted for interpretation. Single image demonstrates surgical instruments overlying the right upper quadrant. The cystic duct is cannulated. There is opacification of the common duct as well as the right and left hepatic ducts and a few right intrahepatic bile ducts. While a portion of the mid common duct is obscured due to overlying surgical instruments, there is otherwise no filling defect seen within the visualized extra hepatic or intrahepatic bile ducts. There is mild prominence of the common duct. There is contrast seen in a portion of the pancreatic duct with small of contrast seen in the small bowel. Correlation with intraoperative findings is recommended. Fluoroscopy: Total fluoroscopy time is 17 seconds with a cumulative dose of 6.09 mGy.
[2019-01-31] MEDS ORDERED: Ibuprofen 600 MG TAB PO PRN (15:21)
[2019-01-31] MEDS ORDERED: Acetaminophen 500 MG TAB PO PRN (15:21)
[2019-01-31] MEDS: hydrALAZINE 20 MG/ML VIAL SLOW IVP PRN (16:58)
--- NOTE | 2019-01-31 17:23 | EKG ---
Test Reason : Blood Pressure : / mmHG Vent. Rate : 059 BPM Atrial Rate : 059 BPM P-R Int : 158 ms QRS Dur : 132 ms QT Int : 444 ms P-R-T Axes : 047 -45 102 degrees QTc Int : 439 ms Sinus bradycardia with sinus arrhythmia Left axis deviation Left ventricular hypertrophy with QRS widening and repolarization abnormality Abnormal ECG When compared with ECG of 09-MAY-1997 12:37, Questionable change in QRS duration Confirmed by DR. Miladis ARCE ([id number]) on 01/31/2019 5:22:34 PM Referred By: BECCA Confirmed By:DR. Miladis ARCE
[2019-01-31] MEDS ORDERED: Ciprofloxacin 500 MG TAB PO SCH (20:00)
--- NOTE | 2019-01-31 20:53 | OP ---
DATE OF PROCEDURE: 01/31/2019 PREOPERATIVE DIAGNOSES: Biliary pancreatitis, cholelithiasis. POSTOPERATIVE DIAGNOSES: Biliary pancreatitis, cholelithiasis. PROCEDURE PERFORMED: Laparoscopic video cholecystectomy, intraoperative cholangiogram using fluoroscopy, normal. ANESTHESIA: General, local 0.5% Marcaine with epinephrine, 30 mL total volume used. DESCRIPTION OF PROCEDURE: The patient was taken to the operating room where under general anesthesia, abdomen was prepared with ChloraPrep and draped in routine fashion. The patient was so morbidly obese, I had great difficulty identifying the subcostal margin iliac crest, but with some persistence I did. Initial right midclavicular incision made and pneumoperitoneum to 15 mmHg obtained with a Veress needle. I then placed a 5 port with visualization technique using the laparoscope and I was in omentum. After some persistence, I could not visualize the liver. I then moved my port to the right subxiphoid area and introduced a 5 port and visualized the liver and gallbladder and then replaced this 5 port with 11 port and reestablished pneumoperitoneum. Under laparoscopic visualization, I placed right subcostal, midclavicular, and anterior line incisions and 5 port placed more slightly, more inferior and laterally to compensate for the patient's thick abdominal wall. The patient had small bowel adhesions in the right abdomen, under laparoscopic visualization, these were avoided with laparoscopic placement of another 5 mm port dependently toward the midline. I was then able to grasp the fundus of the gallbladder and stripped inflammatory adhesions from the liver and the gallbladder freeing the duodenum and stomach from the gallbladder body. Infundibulum grasped laterally and with careful dissection, obtained a critical view. Cystic artery doubly clipped proximally, singly clipped distally and cystic duct singly clipped on the gallbladder side. Opening was made in the cystic duct, cholangiocatheter inserted and cholangiogram was obtained using fluoroscopy, revealing free flow of contrast in the duodenum without filling defects in the common hepatic, common bile, and intrahepatic ducts. The duct tapered nicely. No signs of choledocholithiasis. At this point, cholangiocatheter removed, cystic duct doubly clipped and cystic artery and duct divided, and gallbladder dissected free from liver bed obtaining good hemostasis prior to division of the final peritoneal attachments. Gallbladder and contents removed. There were multiple small stones. The gallbladder was submitted to Pathology. Good hemostasis obtained with cautery and Renan placed in the gallbladder bed. Instruments removed after pneumoperitoneum reduced. All skin incisions were approximated with interrupted subdermal 4-0 Monocryl and [place] glue applied. Job ID: [id number]
[2019-01-31] MEDS: Ketorolac Tromethamine 30 MG/ML VIAL IVP PRN (21:02)
[2019-02-01] MEDS: traMADol HCl 50 MG TAB PO PRN ×3 (00:46→12:11)
[2019-02-01] MEDS: Sodium Chloride 0.9% 1,000 ML IV SCH ×2 (00:48→10:44)
[2019-02-01 05:48] LABS: #Basophils 0.1 thou/uL (0.0-0.2); #Lymphocytes 0.7 thou/uL (1.20-3.40); #Monocytes 0.9 thou/uL (0.11-0.59); #Neutrophils 14.6 thou/uL (1.40-6.50); %Basophils 0.4 % (0.0-1.0); %Eosinophils 0.3 % (0.0-10.0); %Lymphocytes 4.4 % (21.0-51.0); %Monocytes 5.4 % (0.0-10.0); %Neutrophils 89.6 % (42.0-75.0); Hemoglobin 12.2 g/dL (12.0-16.0); Mean Corpuscular HGB CONC 32.6 g/dL (32.0-36.0); Mean Corpuscular Hemoglobin 27.3 pg (27.0-31.0); Mean Corpuscular Volume 83.9 fL (78.0-98.0); Mean Platelet Volume 8.3 fL (7.4-10.4); Platelet Count 185 thou/uL (130-400); RBC Distribution Width 15.6 % (11.5-14.5); Red Blood Cell (RBC) Count 4.46 mill/uL (4.20-5.40); White Blood Cell (WBC) Count 16.4 thou/uL (4.8-10.8)
[2019-02-01] MEDS: Ketorolac Tromethamine 30 MG/ML VIAL IVP PRN (05:53)
[2019-02-01 06:08] LABS: ALT (SGPT) 45 U/L (8-55); AST (SGOT) 50 U/L (5-34); Albumin 3.3 g/dL (3.4-4.8); Alkaline Phosphatase 64 U/L (40-150); Anion Gap 12 mmol/L (10-20); BUN (Urea Nitrogen) 10 mg/dL (9.8-20.1); Bilirubin, Total 0.8 mg/dL (0.2-1.2); Calc. Creatinine Clearance 198 mL/min (70-130); Calcium 8.8 mg/dL (7.8-10.44); Carbon Dioxide 23 mmol/L (23-31); Chloride 105 mmol/L (98-107); Estimated GFR-MDRD 81; Globulin 2.7 g/dL (2.4-3.5); Glucose 116 mg/dL (80-115); Potassium 3.5 mmol/L (3.5-5.1); Sodium 136 mmol/L (136-145)
[2019-02-01] MEDS ORDERED: metFORMIN 500 MG TAB PO SCH (08:00)
[2019-02-01] MEDS: Enoxaparin Sodium 40 MG/0.4 ML SYRINGE SC SCH (08:13)
[2019-02-01] MEDS: Famotidine 20 MG TAB PO SCH (08:13)
[2019-02-01] MEDS ORDERED: Polyethylene Glycol 3350 17 GM Packet PO SCH (09:00)
--- NOTE | 2019-02-01 10:36 | PDOC.GSPN ---
Surgery Progress Note: Subj - Subjective Patient reports: pain well controlled, tolerating a regular diet Surgery Progress Note: Obj - Vital signs Vital signs: Vital Signs - Most Recent Temp Pulse Resp BP Pulse Ox 98.1 F 75 18 161/78 H 96 02/01/19 08:00 02/01/19 08:00 02/01/19 08:00 02/01/19 08:00 02/01/19 08:00 - Physical Exam General: no distress Abdomen: soft, nondistended Wound: healing well Surgery Progress Note: Results - Labs Result Diagrams: 02/01/19 05:33 02/01/19 05:33 Lab results: Laboratory Results - last 24 hr 02/01/19 02/01/19 02/01/19 05:15 05:33 05:33 WBC 16.4 H RBC 4.46 Hgb 12.2 Hct 37.4 MCV 83.9 MCH 27.3 MCHC 32.6 RDW 15.6 H Plt Count 185 MPV 8.3 Neutrophils % 89.6 H Lymphocytes % 4.4 L Monocytes % 5.4 Eosinophils % 0.3 Basophils % 0.4 Neutrophils # 14.6 H Lymphocytes # 0.7 L Monocytes # 0.9 H Eosinophils # 0.0 Basophils # 0.1 Sodium 136 Potassium 3.5 Chloride 105 Carbon Dioxide 23 Anion Gap 12 BUN 10 Creatinine 0.73 Estimated GFR (MDRD) 81 Glucose 116 H POC Glucose 112 H Calcium 8.8 Total Bilirubin 0.8 AST 50 H ALT 45 Alkaline Phosphatase 64 Serum Total Protein 6.0 Albumin 3.3 L Globulin 2.7 Albumin/Globulin Ratio 1.2 Surgery Progress Note: A/P - Problem (1) Cholelithiasis Current Visit: Yes Code(s): K80.20 - CALCULUS OF GALLBLADDER W/O CHOLECYSTITIS W/O OBSTRUCTION Status: Acute Qualifiers: Cholelithiasis location: gallbladder Cholecystitis presence: without cholecystitis (2) Pancreatitis, acute Current Visit: Yes Code(s): K85.90 - ACUTE PANCREATITIS WITHOUT NECROSIS OR INFECTION, UNSP Status: Acute Qualifiers: Pancreatitis type: biliary Acute pancreatitis complication: unspecified Qualified Code(s): K85.10 - Biliary acute pancreatitis without necrosis or infection - Plan Plan: POD 1 lap shakira with normal cholangiogram -home today -f/u Ant 2 weeks
[2019-02-01 10:44] VITALS: BP 164/79; TEMP 98.4
--- NOTE | 2019-02-01 12:23 | PDOC.PN ---
- Subjective Encounter Start Date: 02/01/19 Encounter Start Time: 09:00 Subjective: no abd pain, is passing flatus -: no sob -: is amb in room - Objective Resuscitation Status - Order Detail: 01/29/19 07:32 Resuscitation Status Routine Resuscitation Status: FULL: Full Resuscitation MAR Reviewed: Yes Vital Signs & Weight: Vital Signs (12 hours) Temp Pulse Resp BP Pulse Ox 02/01/19 10:44 98.4 F 74 18 164/79 H 99 02/01/19 08:00 98.1 F 75 18 161/78 H 96 02/01/19 04:00 98 F 78 18 171/84 H 95 Weight Weight 341 lb 9.6 oz I&O: 01/31/19 02/01/19 02/02/19 06:59 06:59 06:59 Intake Total 1900 3420 1220 Balance 1900 3420 1220 Result Diagrams: 02/01/19 05:33 02/01/19 05:33 Additional Labs: Accuchecks 02/01/19 02/01/19 01/31/19 10:27 05:15 20:06 POC Glucose 112 H 112 H 123 H 01/31/19 16:28 POC Glucose 149 H Phys Exam - Physical Examination HEENT: PERRLA, moist MMs Neck: no JVD, supple Respiratory: no wheezing, no rales Cardiovascular: RRR, no significant murmur Gastrointestinal: soft, positive bowel sounds Musculoskeletal: no edema, pulses present Neurological: non-focal, moves all 4 limbs Psychiatric: normal affect, A&O x 3 Dx/Plan (1) Cholelithiasis Code(s): K80.20 - CALCULUS OF GALLBLADDER W/O CHOLECYSTITIS W/O OBSTRUCTION Status: Acute Qualifiers: Cholelithiasis location: gallbladder Cholecystitis presence: without cholecystitis Comment: s/p lap shakira 01/31/2019 (2) Pancreatitis, acute Code(s): K85.90 - ACUTE PANCREATITIS WITHOUT NECROSIS OR INFECTION, UNSP Status: Acute Qualifiers: Pancreatitis type: biliary Acute pancreatitis complication: unspecified Qualified Code(s): K85.10 - Biliary acute pancreatitis without necrosis or infection Comment: resolving (3) DM type 2 (diabetes mellitus, type 2) Status: Chronic Qualifiers: Diabetes mellitus penitentiary insulin use: without penitentiary use Diabetes mellitus complication status: without complication Qualified Code(s): E11.9 - Type 2 diabetes mellitus without complications (4) HTN (hypertension) Code(s): I10 - ESSENTIAL (PRIMARY) HYPERTENSION Status: Chronic Qualifiers: Hypertension type: essential hypertension Qualified Code(s): I10 - Essential (primary) hypertension (5) Morbid obesity with BMI of 50.0-59.9, adult Code(s): E66.01 - MORBID (SEVERE) OBESITY DUE TO EXCESS CALORIES; Z68.43 - BODY MASS INDEX (BMI) 50-59.9, ADULT Status: Chronic (6) UTI (urinary tract infection) Status: Acute Qualifiers: Urinary tract infection type: acute cystitis Hematuria presence: without hematuria Qualified Code(s): N30.00 - Acute cystitis without hematuria - Plan hemostable -: is cleared for dc by gen surgery -: to f/u with as adv. * .
--- NOTE | 2019-02-02 06:45 | PQF ---
[employer] En[employer] Crystal Reports Winform Viewer DUANE CALVO VINAYA KUMAR MD [id number] [facility] B- [id number] CLINICAL DOCUMENTATION CLARIFICATION FORM: POST DISCHARGE Addendum to original discharge summary date: ____ Late entry note date: __ DATE: 02/02/19 ATTN: BELINDA Blakely Please exercise your independent, professional judgment in responding to the clarification form. Clinical indicators are provided on the bottom of this form for your review Can you please specify whether Sepsis is ruled in or ruled out during this encounter? Sepsis [ x ] Ruled in diagnosis [ ] Continue to treat [x ] Resolved [ ] Ruled out diagnosis [ ] Cannot rule out diagnosis [ ] Other diagnosis please specify: [ ] Unable to determine For continuity of documentation, please document condition throughout progress notes and discharge summary. Thank You. CLINICAL INDICATORS H and P 01/29 pg.1 - routine blood test showed lactic acidosis, leukocytosis, and elevated lipase H and P 01/29 pg.1- Urinalysis suggestive of UTI. H and P 01/29 pg.3- Acute pancreatitis H and P 01/29 pg.3- Lactic acidosis likely due to sepsis secondary to urinary tract infection versus choledocholithiasis H and P 01/29 pg.3- Urinary tract infection with sepsis ED 01/29 pg 1 Vital Signs: BP: 180/77, Pulse: 61, RR: 20, Temp: 98.3 Consult 01/[address] Nevarez- Laboratory data WBC 16.8 Consult 01/[address] Nevarez- Acute cholelithiasis with acute pancreatitis Hospitalist PN 02/01 pg.3Djayleen Vela- Acute cystitis without hematuria Microbiology- 01/29- Escherichia coli RISK FACTORS Acute cystitis without hematuria-Hospitalist PN 02/01 pg.3Djayleen Vela Acute pancreatitis-H and P 01/29 pg.3 Morbid Obesity--Hospitalist PN 02/01 pg.3Dr. Jagadeeshchristina TREATMENTS Laparoscopic video cholecystectomy- Operative Report 01/31 Urine culture- Microbiology 01/29 IV Fluids- NOV 23 Ceftriaxone/rocephin 2gm IV Q24H- NOV 23 Levofloxacin 750mg IV Q24H- NOV 23 (This form is maintained as a part of the permanent medical record) 2014 [employer]. All Rights Reserved [email or web address] [not provided] MTDD
--- NOTE | 2019-02-02 10:32 | DIS ---
DATE OF ADMISSION: 01/29/2019 DATE OF DISCHARGE: 02/01/2019 DISCHARGE DISPOSITION: Home. PRIMARY DISCHARGE DIAGNOSIS: Biliary pancreatitis with cholelithiasis, status post laparoscopic cholecystectomy done on 01/31/[address] Cain. SECONDARY DISCHARGE DIAGNOSES: Morbid obesity; diabetes mellitus type 2; hypertension; urinary tract infection, resolved. PROCEDURES DONE DURING HOSPITALIZATION: Abdominal ultrasound done on the day of admission showed cholelithiasis. Gallbladder wall was mildly thickened, measuring 3 mm. No pericholecystic fluid was seen. There is diffuse fatty infiltration of liver. Main pancreatic duct was slightly dilated measuring over 3 mm. Common bile duct was dilated measuring 8 mm. Histopathology of gallbladder specimen reveals chronic cholecystitis with cholelithiasis. The patient had laparoscopic video cholecystectomy with intraoperative cholangiogram using fluoroscopy done by Dr. Cain on 01/31/2019. Urine culture grew E coli 25,000 to 50,000 colony-forming units, which was pansensitive. Had a white count of 16 with H and H of 15 and 46, platelet count of 193 on the day of admission with 89% neutrophils. Discharge total bilirubin 0.8, AST 50, ALT 45, albumin 3.3, BUN and creatinine were 10 and 0.7 on the day of discharge. Lipase was 5946 on the day of admission with numbers decreasing to 610 on 01/30/2019. Lactic acid was 3.2, triglycerides 135, total cholesterol 118, triglycerides 118, LDL 66, HDL 28, HbA1c 5.3. DISCHARGE MEDICATIONS: 1. Motrin 600 mg p.o. q.6 hourly p.r.n. for pain. 2. MiraLax 17 g daily. 3. Ultram 50 mg p.o. q.6 hourly p.r.n. for pain. 4. Sertraline 25 mg p.o. daily. 5. Metformin 1000 mg p.o. q.a.m. ALLERGIES: TO PAPER TAPE. INPATIENT CONSULT: 1. Dr. Jair Cohen for Gastroenterology. 2. Dr. Cain/Dr. Llanos for General Surgery. DISCHARGE PLAN: The patient to follow up with Dr. Cain as advised and primary care physician in 1 week. BRIEF COURSE DURING HOSPITALIZATION: The patient initially came to ER with complaints of nausea, vomiting, and epigastric abdominal pain. The patient was morbidly obese and had ultrasound done, which revealed cholelithiasis with gallbladder wall thickening and dilatation of common bile duct and main pancreatic duct. Her initial lipase was around 6000. The patient was kept n.p.o. and has had aggressive IV fluid hydration. She has had consultation with Dr. Jair Cohen and Dr. Llanos for Gastroenterology and General Surgery. Her LFTs and abdominal pain were slowly resolving. The patient's lipase also was trending down to 610. The patient has had a laparoscopic cholecystectomy done by Dr. Cain on 01/31/2019. She needs to follow up with Dr. Cain as advised. Postop, the patient's epigastric abdominal pain is completely resolved. She is tolerating oral fat free solid diet. She needs to follow up with her primary care physician in 1 week. Job ID: [id number]
[2019-02-05] MEDS ORDERED: Ibuprofen 600 MG TAB PO PRN (15:24)
== END 2019-02-01 12:50 | disposition home or self-care (01) | DRG 853 ==
LOC: ERS 02:08 → SURG B 04:44
PROVIDERS: ADMIT Hospitalist; ATTEND Hospitalist
PROC: 0FT44ZZ Resection of Gallbladder, Percutaneous Endoscopic Approach (ICD-10-PCS; principal; 2019-01-31)
PROC: BF10YZZ Fluoroscopy of Bile Ducts using Other Contrast (ICD-10-PCS; 2019-01-31)
DX: A41.9 Sepsis, unspecified organism (principal); K85.10 Biliary acute pancreatitis without necrosis or infection; Z68.43 Body mass index [BMI] 50.0-59.9, adult; E87.2 Acidosis; N30.00 Acute cystitis without hematuria; F32.9 Major depressive disorder, single episode, unspecified; J45.909 Unspecified asthma, uncomplicated; E66.01 Morbid (severe) obesity due to excess calories; D72.829 Elevated white blood cell count, unspecified; M19.90 Unspecified osteoarthritis, unspecified site; F41.9 Anxiety disorder, unspecified; E11.9 Type 2 diabetes mellitus without complications; Z79.84 Long term (current) use of oral hypoglycemic drugs; Z79.899 Other long term (current) drug therapy; Z90.49 Acquired absence of other specified parts of digestive tract
CPT/HCPCS: 36415; 36416; 47532; 76705; 80053; 80061; 81003; 81015; 83036; 83605; 83690; 83735; 84100; 84478; 85025; 86140; 87077; 87086; 87186; 88304; 93005; 93010; 96361; 96365; 96372; 96375; 96376; J0131; J0360; J0500; J0670; J0696; J1100; J1610; J1650; J1885; J1956; J2001; J2270; J2405; J2704; J2765; J3010; J3490; Q0162; Q9961; S0028

== ENCOUNTER 2019-08-04 06:23 | Day surgery (SDC) | payer BC ==
[2019-08-03 10:03] VITALS: BMI 56.5
[~2019-08-04 06:23] MED LIST: Cyclopentolate 1% Opth Drop 2 ML BOT R EYE SCH; Fluorouracil 100 MG, Enoxaparin Sodium 25 MG, EPINEPHrine 0.3 MG in Ophthalmic Irrigati... IRR SCH; Phenylephrine 2.5% Ophth Soln 5 ML BOT R EYE SCH
[2019-08-04] MEDS ORDERED: Fentanyl 100 MCG/2 ML VIAL ONE (06:45)
[2019-08-04] MEDS ORDERED: Midazolam HCl 2 mg/2 ml Vial ONE (06:45)
[2019-08-04] MEDS ORDERED: Cyclopentolate 1% Opth Drop 2 ML BOT ONE (06:51)
[2019-08-04] MEDS ORDERED: Phenylephrine 2.5% Ophth Soln 5 ML BOT ONE (06:51)
--- NOTE | 2019-08-04 09:52 | OP ---
DATE OF PROCEDURE: 08/04/2019 PREOPERATIVE DIAGNOSIS: Rhegmatogenous retinal detachment, right eye. POSTOP DIAGNOSIS: Rhegmatogenous retinal detachment, right eye. PROCEDURES PERFORMED: Pars plana vitrectomy and retinal detachment repair, right eye. ANESTHESIA: Local monitored anesthesia care. DESCRIPTION OF PROCEDURE: The patient was identified in the preoperative holding area. Appropriate informed consent for the planned surgical procedure on the right eye had been obtained. The patient was transported to the operative suite. Appropriate cardiopulmonary monitoring was established. Local anesthesia obtained using retrobulbar modified [place] Lint lid block using 50:50 mixture of 4% lidocaine and 0.75% bupivacaine. The patient was prepped and draped in usual sterile manner for ophthalmic surgery of right eye. Lid speculum was placed in the right eye. A 25-gauge trocar was placed in the conjunctiva and sclera superotemporally, inferotemporally, supranasally. Infusion line was placed inferotemporally. Light pipe vitreous cutter inserted to the eye. Core vitrectomy was performed. Vitreous base was dissected back 360 degrees. Tear was noted at the 11 o'clock position. Posterior drained retinotomy was created along the supratemporal arcade. Complete air-fluid exchange was performed with 10 minutes being left for fluid to drain posteriorly. Superior barricade laser was placed for special attention on the superior tear. 28% sulfur hexafluoride gas was infused into the eye. Trocars were removed. Sclerotomy suture closed. Retrobulbar Kenalog and subconjunctival Ancef were placed. Antibiotic ointment placed. Eye was patched and shield. The patient was taken to postoperative recovery unit in good condition having suffered no immediate perioperative complications. The patient was instructed to keep patch and shield on, avoid lifting or bending, and followup appointment with Dr. Madrid. Job ID: [id number]
[2019-08-04] MEDS ORDERED: Bupivacaine PF 0.75% SDV 10 ML ONE (13:13)
[2019-08-04] MEDS ORDERED: Lidocaine 1% PF 5 ML VIAL ONE (13:13)
[2019-08-04] MEDS ORDERED: Triamcinolone 40 MG/ML VIAL ONE (13:13)
[2019-08-04] MEDS ORDERED: PROPOFOL 200 MG/20 ML VIAL ONE (13:13)
[2019-08-04] MEDS ORDERED: Lidocaine 4% PF 5 ML AMP ONE (13:13)
[2019-08-04] MEDS ORDERED: Maxitrol 0.1% Opth Oint 3.5 GM TUBE ONE (13:13)
== END 2019-08-04 10:00 | disposition home or self-care (01) ==
LOC: SDC 06:23
PROVIDERS: ATTEND Ophthalmology Retina Specialist
PROC: 08T43ZZ Resection of Right Vitreous, Percutaneous Approach (ICD-10-PCS; principal; 2019-08-04)
DX: H33.011 Retinal detachment with single break, right eye (principal); Z79.1 Long term (current) use of non-steroidal anti-inflammatories (NSAID); Z91.048 Other nonmedicinal substance allergy status
CPT/HCPCS: 67025; J0171; J1650; J2001; J2250; J2704; J3010; J3301; J3490; J9190

== ENCOUNTER 2021-06-27 08:54 | Outpatient (CLI) | payer BC | END 2021-06-27 08:55 | disposition home or self-care (01) | LOC: BICULT 08:54 | PROVIDERS: ATTEND Family Medicine | DX: R31.9 Hematuria, unspecified (principal) | CPT/HCPCS: 76770 ==